=== PATIENT | male | born 1945 | race Caucasian/White ===

== ENCOUNTER 2016-08-04 13:39 | Emergency (ER) | payer OTHER ==
[~2016-08-04] VITALS: Ht 180.3 cm; Wt 81.1 kg
[~2016-08-04 13:39] MED LIST: ACCL20 PO; ADVIN25050 INH; ALL300 PO; ATOR-24 PO; CZR50 PO; ESCI1TAB10 PO; PANT40TA PO; SNT/10 PO; TRAZ50TA35 PO
[2016-08-04 13:42] VITALS: TEMP 36.8; Ht 180.3 cm; Wt 81.1 kg
--- NOTE | 2016-08-04 14:11 | EMERGENCY ROOM VISIT NOTE ---
History Report prepared by Toña: Valdo Blackwell Under the Supervision of: Dr. Jareth Frankel M.D. First contact with patient: 13:48 Chief Complaint: COUGH Stated Complaint: COLD, COUGH, CHEST CONGESTION Nursing Triage Summary: pt c/o cold sx started last week. has been using robitusin. coughing yellow/green mucus. has nasal and chest congestion. pt reports has hx of bronchitis and pneumonia History of Present Illness The patient is a 70 year old male who presents to the Emergency Room with complaints of a persistent illness that started 5 days ago. Per the patient's , the patient has been congested and coughing. His cough is productive with yellow/green mucous. The patient has a history of bronchitis and pneumonia, and his states that the patient is easily subjected to them. The patient denies any fevers. He has not had any recent travels. Source of History: patient, spouse/significant other Onset: 5 days ago Position: other (global - illness) Timing: other (persistent) Associated Symptoms: + cough, No fevers Note: Associated symptoms: Congestion. Review of Systems See HPI for pertinent positives & negatives. A total of 10 systems reviewed and were otherwise negative. Past Medical & Surgical Medical Problems: (1) Asthma (2) Bronchitis (3) Bronchitis (4) HTN (hypertension) (5) PNA (pneumonia) (6) PNA (pneumonia) Family History No pertinent family history Social History Smoking Status: Never Smoker Smokeless Tobacco Use: No Alcohol Use: occasionally Marital Status: Housing Status: lives with significant other Occupation Status: retired Current/Historical Medications Scheduled Allopurinol (Zyloprim *), 300 MG PO DAILY Atorvastatin (Lipitor), 40 MG PO DAILY Azithromycin (Zithromax Z-Marshall), 1 PKT PO UD Escitalopram Oxalate (Lexapro), 20 MG PO DAILY Fluticasone Prop/Salmeterol (Advair Diskus 250/50 Mcg *), 1 PUFF INH BID Losartan Potassium (Cozaar *), 100 MG PO DAILY Pantoprazole (Protonix), 40 MG PO DAILY Trazodone Hcl (Trazodone), 50 MG PO HS Zafirlukast (Accolate *), 20 MG PO DAILY Zaleplon (Sonata), 5 MG PO HS Allergies Uncoded Allergies: ENVIRONMENTAL (Allergy, Unknown, 08/22/02) Physical Exam Vital Signs Date Time Temp Pulse Resp B/P Pulse Ox O2 Delivery O2 Flow Rate FiO2 08/04/16 15:06 89 18 145/91 96 Room Air 08/04/16 13:42 36.8 68 18 145/81 97 Room Air 08/04/16 13:42 97 Room Air Physical Exam CONSTITUTIONAL: Occasional coughing. Nontoxic. HEENT: No icterus, moist mucous membranes NECK: No meningismus, trachea is midline. CARDIOVASCULAR: Regular rate, normal perfusion RESPIRATORY: Lungs clear without rhonchi. GASTROINTESTINAL: Non-tender GENITOURINARY: No flank tenderness MUSCULOSKELETAL: Full range of motion NEUROLOGIC: No acute gross focal deficits. PSYCHIATRIC: Normal affect SKIN: Normal for ethnicity. Medical Decision & Procedures ER Provider Diagnostic Interpretation: X-ray results as stated below per interpretation by me and the radiologist. TWO VIEW CHEST CLINICAL HISTORY: Dyspnea. FINDINGS: PA and lateral chest radiographs are compared to study dated 10/12/2005 . Correlation is made with chest CT dated 01/31/2006. The patient is status post midline sternotomy and mitral valve surgery. The heart is enlarged and there is atherosclerotic calcification of the thoracic aorta. The pulmonary vasculature is noncongested. Chronic interstitial thickening is similar to previous. There is mild bibasilar atelectasis. No airspace consolidation is identified typical for pneumonia. There is no pleural effusion or pneumothorax. The skeletal structures are osteopenic. The bony thorax appears intact. IMPRESSION: Cardiomegaly with no active disease in the chest. Electronically signed by: Mark Cain M.D. 08/04/2016 2:37 PM Dictated Date/Time: 08/04/2016 2:33 PM Laboratory Results 08/04/16 14:04 Red Blood Count 4.78, Mean Corpuscular Volume 91.0, Mean Corpuscular Hemoglobin 30.1, Mean Corpuscular Hemoglobin Concent 33.1, Mean Platelet Volume 11.7, Neutrophils (%) (Auto) 59.9, Lymphocytes (%) (Auto) 21.5, Monocytes (%) (Auto) 13.1, Eosinophils (%) (Auto) 4.9, Basophils (%) (Auto) 0.6, Neutrophils # (Auto ) 3.07, Lymphocytes # (Auto) 1.10, Monocytes # (Auto) 0.67, Eosinophils # (Auto ) 0.25, Basophils # (Auto) 0.03 08/04/16 14:04 Test 08/04/16 14:00 08/04/16 14:04 Influenza Type A Antigen Neg for Influ A (NEG) Influenza Type B Antigen Neg for Influ B (NEG) White Blood Count 5.12 K/uL (4.8-10.8) Red Blood Count 4.78 M/uL (4.7-6.1) Hemoglobin 14.4 g/dL (14.0-18.0) Hematocrit 43.5 % (42-52) Mean Corpuscular Volume 91.0 fL (80-100) Mean Corpuscular Hemoglobin 30.1 pg (25-34) Mean Corpuscular Hemoglobin Concent 33.1 g/dl (32-36) Platelet Count 174 K/uL (130-400) Mean Platelet Volume 11.7 fL (7.4-10.4) Neutrophils (%) (Auto) 59.9 % Lymphocytes (%) (Auto) 21.5 % Monocytes (%) (Auto) 13.1 % Eosinophils (%) (Auto) 4.9 % Basophils (%) (Auto) 0.6 % Neutrophils # (Auto) 3.07 K/uL (1.4-6.5) Lymphocytes # (Auto) 1.10 K/uL (1.2-3.4) Monocytes # (Auto) 0.67 K/uL (0.11-0.59) Eosinophils # (Auto) 0.25 K/uL (0-0.5) Basophils # (Auto) 0.03 K/uL (0-0.2) RDW Standard Deviation 44.4 fL (36.4-46.3) RDW Coefficient of Variation 13.2 % (11.5-14.5) Immature Granulocyte % (Auto) 0.0 % Immature Granulocyte # (Auto) 0.00 K/uL (0.00-0.02) Anion Gap 8.0 mmol/L (3-11) Est Creatinine Clear Calc Drug Dose 66.5 ml/min Estimated GFR () 78.4 Estimated GFR (Non- 67.7 BUN/Creatinine Ratio 16.0 (10-20) Calcium Level 10.1 mg/dl (8.5-10.1) Labs reviewed by ED physician. ED Course 1349: Past medical records reviewed. The patient was evaluated in room C8. A complete history and physical examination was performed. 1459: I reevaluated the patient and he is resting comfortably. The patient verbally expressed understanding and agreement of the treatment plan. The patient will be discharged. Medical Decision Differential diagnoses include: bronchitis, pneumonia. 70-year-old presents to the emergency department for evaluation of cough and congestion for 5 days and concern over pneumonia prior to going on vacation. Lab work, chest x-ray within normal limits. Patient advised diagnosis likely acute bronchitis and given a [id number] prescription for Z-Marshall. Impression Primary Impression: Acute bronchitis Scribe Attestation The scribe's documentation has been prepared under my direction and personally reviewed by me in its entirety. I confirm that the note above accurately reflects all work, treatment, procedures, and medical decision making performed by me. Departure Information Dispostion Home / Self-Care Prescriptions Azithromycin (ZITHROMAX Z-MARSHALL) 250 Mg Tab 1 PKT PO UD, #1 PKT Prov: Jareth Frankel MD 08/04/16 Referrals Pro,Ge Garcia M.D. (PCP) Forms HOME CARE DOCUMENTATION FORM, IMPORTANT VISIT INFORMATION Patient Instructions ED Bronchitis Viral, My [facility]
[2016-08-04 14:17] LABS: BASO % 0.6 %; BASO ABS # 0.03 K/uL (0-0.2); COMPLETE YES; EOS % 4.9 %; HEMATOCRIT 43.5 % (42-52); LYMPH % 21.5 %; MEAN CORPUSCULAR HEMOGLOBIN 30.1 pg (25-34); MEAN CORPUSCULAR HGB CONC 33.1 g/dl (32-36); MEAN PLATELET VOLUME 11.7 fL (7.4-10.4); MONO % 13.1 %; NEUT % 59.9 %; PLATELET COUNT 174 K/uL (130-400); RED BLOOD COUNT 4.78 M/uL (4.7-6.1); WHITE BLOOD COUNT 5.12 K/uL (4.8-10.8)
[2016-08-04 14:34] LABS: CALCIUM 10.1 mg/dl (8.5-10.1); CREATININE 1.1 mg/dl (0.60-1.40); POTASSIUM 3.9 mmol/L (3.5-5.1)
--- NOTE | 2016-08-04 14:38 | DIAGNOSTIC IMAGING REPORT ---
TWO VIEW CHEST CLINICAL HISTORY: Dyspnea. FINDINGS: PA and lateral chest radiographs are compared to study dated 10/12/2005 . Correlation is made with chest CT dated 01/31/2006. The patient is status post midline sternotomy and mitral valve surgery. The heart is enlarged and there is atherosclerotic calcification of the thoracic aorta. The pulmonary vasculature is noncongested. Chronic interstitial thickening is similar to previous. There is mild bibasilar atelectasis. No airspace consolidation is identified typical for pneumonia. There is no pleural effusion or pneumothorax. The skeletal structures are osteopenic. The bony thorax appears intact. IMPRESSION: Cardiomegaly with no active disease in the chest. Electronically signed by: Mark Cain M.D. 08/04/2016 2:37 PM Dictated Date/Time: 08/04/2016 2:33 PM
[2016-08-04] MEDS ORDERED: AZITTAB PO (14:57)
[2016-08-04 15:06] VITALS: BP 145/91; PULSE 89; O2SAT 96
== END 2016-08-04 15:08 | disposition home or self-care (01) ==
LOC: C.EDB 13:41 → C.EDC 15:08
DX: J20.9 Acute bronchitis, unspecified (principal); Z87.01 Personal history of pneumonia (recurrent); J45.909 Unspecified asthma, uncomplicated; I10 Essential (primary) hypertension; Z79.899 Other long term (current) drug therapy

== ENCOUNTER 2016-12-21 14:56 | Emergency (ER) | payer OTHER ==
[~2016-12-21] VITALS: Ht 180.3 cm; Wt 81.2 kg
[2016-12-21 15:04] VITALS: TEMP 36.6; Ht 180.3 cm; Wt 81.2 kg
[2016-12-21] MEDS ORDERED: SODIUM CHLORIDE 0.9% 250ML 250 ML IV STA (15:24)
[2016-12-21] MEDS ORDERED: SODIUM CHLORIDE 0.9% 1000ML 1,000 ML IV STA (15:24)
[2016-12-21 15:52] LABS: BASO % 0.9 %; BASO ABS # 0.06 K/uL (0-0.2); COMPLETE YES; EOS % 1.2 %; HEMATOCRIT 47.7 % (42-52); IG% 0.1 %; LYMPH % 25.3 %; LYMPH ABS # 1.69 K/uL (1.2-3.4); MEAN CORPUSCULAR HEMOGLOBIN 29.4 pg (25-34); MEAN CORPUSCULAR HGB CONC 32.7 g/dl (32-36); MEAN PLATELET VOLUME 11.5 fL (7.4-10.4); MONO % 10.9 %; NEUT % 61.6 %; PLATELET COUNT 164 K/uL (130-400); WHITE BLOOD COUNT 6.67 K/uL (4.8-10.8)
[2016-12-21] MEDS ORDERED: LOSA1TAB38 PO (15:53)
[2016-12-21] MEDS ORDERED: THIA100T11 PO (15:56)
[2016-12-21] MEDS ORDERED: CYAN250T PO (15:56)
[2016-12-21] MEDS ORDERED: ASPI81TA28 PO (15:56)
--- NOTE | 2016-12-21 15:57 | DIAGNOSTIC IMAGING REPORT ---
HEAD CT NONCONTRAST CT DOSE: 537.48 mGy.cm HISTORY: dizziness TECHNIQUE: Multiaxial CT images of the head were performed without the use of intravenous contrast. Comparison: None. Findings: The paranasal sinuses and mastoid air cells are clear. The calvarium and skull base are intact. The ventricles and sulci are within normal limits. There is no mass, hematoma, midline shift, or acute infarct. Mild chronic small vessel change. Impression: No acute intracranial abnormality. Age-related chronic small vessel change Electronically signed by: Carlos Turner M.D. 12/21/2016 3:56 PM Dictated Date/Time: 12/21/2016 3:55 PM
[2016-12-21] MEDS ORDERED: ADVIN25/60 INH (16:03)
[2016-12-21] MEDS ORDERED: ALL300 PO (16:03)
[2016-12-21] MEDS ORDERED: PRLSR20 PO (16:05)
[2016-12-21] MEDS ORDERED: ADVIN50/60 INH (16:05)
[2016-12-21] MEDS ORDERED: MEMA1CAP PO (16:05)
[2016-12-21] MEDS ORDERED: MIRT30TA PO (16:05)
[2016-12-21 16:11] LABS: BUN/CREATININE RATIO 10.7 (10-20); CREATININE 1.2 mg/dl (0.60-1.40); MAGNESIUM 2.6 mg/dl (1.8-2.4); POTASSIUM 4.3 mmol/L (3.5-5.1)
[2016-12-21 16:23] LABS: THYROID STIMULATING HORMONE 1.04 uIu/ml (0.300-4.500)
[2016-12-21 16:29] LABS: URINE APPEARANCE CLEAR (CLEAR); URINE BILIRUBIN NEG (NEG); URINE COLOR YELLOW; URINE NITRITE NEG (NEG); URINE SPECIFIC GRAVITY 1.018 (1.000-1.030); UROBILINOGEN NEG (NEG); ZZUR CULT IF INDIC CLEAN CATCH NO
[2016-12-21 16:44] LABS: MANUAL MICROSCOPIC REQUIRED? NO; REVIEW REQ? NO
--- NOTE | 2016-12-21 16:47 | EMERGENCY ROOM VISIT NOTE ---
History Report prepared by Toña: Pk Thibodeaux Under the Supervision of: Dr. Lalitha Calzada M.D. First contact with patient: 15:23 Chief Complaint: DEHYDRATION Stated Complaint: DEHYDRATION History of Present Illness The patient is a 71 year old male who presents to the Emergency Room with complaints of intermittent dehydration symptoms beginning a few days ago. The patient states that he was outside playing golf and believes that this was the cause. He reports that this has happened to him before, and he feels similar symptoms. The patient notes that he has a decreased appetite and has been trying to maintain his fluids. He reports that he does still consume two alcoholic drinks a night. The patient complains of headaches and dizziness. He denies nausea vomiting, diarrhea, and taking Lasix. The patient reports that he takes ten prescribed medications and four over the counter medications. He notes that he takes Mirtazapine for anxiety and to sleep. The patient reports that he has not had blood work for a few months. He states that his PCP is Dr. Curry. Source of History: patient Onset: few days ago Position: other (global) Quality: other (dehydration) Timing: intermittent Associated Symptoms: + headache, No nausea, No vomiting, No diarrhea Note: Associated symptoms: dizziness. Review of Systems See HPI for pertinent positives & negatives. A total of 10 systems reviewed and were otherwise negative. Past Medical & Surgical Medical Problems: (1) Alzheimers disease (2) Asthma (3) Bronchitis (4) Bronchitis (5) HTN (hypertension) (6) Hypercholesteremia (7) PNA (pneumonia) (8) PNA (pneumonia) Surgical Problems: (1) Mitral valve replaced Family History No pertinent family history Social History Smoking Status: Former Smoker Alcohol Use: occasionally (2 per day) Marital Status: Housing Status: lives with significant other Occupation Status: retired Current/Historical Medications Scheduled Allopurinol (Allopurinol), 300 MG PO DAILY Aspirin (Aspirin Ec), 81 MG PO DAILY Atorvastatin (Lipitor), 40 MG PO DAILY Chlorthalidone (Hygroton), 0.5 TAB PO DAILY Cyanocobalamin (Vitamin B-12), 250 MCG PO DAILY Fluticasone Prop/Salmeterol (Advair Diskus 500/50 60 Dose), 1 PUFF INH BID Losartan Potassium (Cozaar), 100 MG PO DAILY Memantine HCl-Donepezil HCl (Namzaric 21-10 mg), 1 CAP PO DAILY Mirtazapine (Remeron), 30 MG PO HS Omeprazole (Prilosec), 20 MG PO DAILY Thiamine Hcl (Vitamin B-1), 100 MG PO DAILY Allergies Uncoded Allergies: ENVIRONMENTAL (Allergy, Unknown, 08/22/02) Physical Exam Vital Signs Date Time Temp Pulse Resp B/P (MAP) Pulse Ox O2 Delivery O2 Flow Rate FiO2 12/21/16 17:41 62 18 160/94 94 Room Air 12/21/16 16:29 68 12/21/16 16:08 97 Room Air 12/21/16 16:02 67 144/84 77 148/87 68 172/89 12/21/16 15:04 36.6 72 20 140/84 92 Room Air Physical Exam Vital signs reviewed. General: Well-appearing, in no significant distress. HEENT: No scleral icterus, PERRLA, neck supple. Atraumatic. Cardiovascular: Regular rate and rhythm, no extra sounds. Pulmonary: Clear to auscultation bilaterally, normal work of breathing. Abdomen: Soft, nontender, nondistended, positive bowel sounds. Musculoskeletal: Atraumatic, no peripheral edema. Neurologic: Patient awake alert and oriented x 3, full strength in all 4 extremities. Cranial nerves 2 through 12 grossly intact. Skin: Warm, dry, no rash Medical Decision & Procedures ER Provider Diagnostic Interpretation: CT results as stated below per my review and radiologist interpretation: HEAD CT NONCONTRAST CT DOSE: 537.48 mGy.cm HISTORY: dizziness TECHNIQUE: Multiaxial CT images of the head were performed without the use of intravenous contrast. Comparison: None. Findings: The paranasal sinuses and mastoid air cells are clear. The calvarium and skull base are intact. The ventricles and sulci are within normal limits. There is no mass, hematoma, midline shift, or acute infarct. Mild chronic small vessel change. Impression: No acute intracranial abnormality. Age-related chronic small vessel change Electronically signed by: Carlos Turner M.D. 12/21/2016 3:56 PM Dictated Date/Time: 12/21/2016 3:55 PM Laboratory Results 12/21/16 15:39 Red Blood Count 5.30, Mean Corpuscular Volume 90.0, Mean Corpuscular Hemoglobin 29.4, Mean Corpuscular Hemoglobin Concent 32.7, Mean Platelet Volume 11.5, Neutrophils (%) (Auto) 61.6, Lymphocytes (%) (Auto) 25.3, Monocytes (%) (Auto) 10.9, Eosinophils (%) (Auto) 1.2, Basophils (%) (Auto) 0.9, Neutrophils # (Auto ) 4.10, Lymphocytes # (Auto) 1.69, Monocytes # (Auto) 0.73, Eosinophils # (Auto ) 0.08, Basophils # (Auto) 0.06 12/21/16 15:39 Test 12/21/16 15:39 12/21/16 16:10 12/21/16 16:20 White Blood Count 6.67 K/uL (4.8-10.8) Red Blood Count 5.30 M/uL (4.7-6.1) Hemoglobin 15.6 g/dL (14.0-18.0) Hematocrit 47.7 % (42-52) Mean Corpuscular Volume 90.0 fL (80-100) Mean Corpuscular Hemoglobin 29.4 pg (25-34) Mean Corpuscular Hemoglobin Concent 32.7 g/dl (32-36) Platelet Count 164 K/uL (130-400) Mean Platelet Volume 11.5 fL (7.4-10.4) Neutrophils (%) (Auto) 61.6 % Lymphocytes (%) (Auto) 25.3 % Monocytes (%) (Auto) 10.9 % Eosinophils (%) (Auto) 1.2 % Basophils (%) (Auto) 0.9 % Neutrophils # (Auto) 4.10 K/uL (1.4-6.5) Lymphocytes # (Auto) 1.69 K/uL (1.2-3.4) Monocytes # (Auto) 0.73 K/uL (0.11-0.59) Eosinophils # (Auto) 0.08 K/uL (0-0.5) Basophils # (Auto) 0.06 K/uL (0-0.2) RDW Standard Deviation 44.9 fL (36.4-46.3) RDW Coefficient of Variation 13.7 % (11.5-14.5) Immature Granulocyte % (Auto) 0.1 % Immature Granulocyte # (Auto) 0.01 K/uL (0.00-0.02) Anion Gap 8.0 mmol/L (3-11) Est Creatinine Clear Calc Drug Dose 60.1 ml/min Estimated GFR () 70.1 Estimated GFR (Non- 60.5 BUN/Creatinine Ratio 10.7 (10-20) Calcium Level 10.0 mg/dl (8.5-10.1) Magnesium Level 2.6 mg/dl (1.8-2.4) Total Bilirubin 0.6 mg/dl (0.2-1) Direct Bilirubin 0.2 mg/dl (0-0.2) Aspartate Amino Transf (AST/SGOT) 14 U/L (15-37) Alanine Aminotransferase (ALT/SGPT) 24 U/L (12-78) Alkaline Phosphatase 51 U/L (45-117) Total Protein 7.2 gm/dl (6.4-8.2) Albumin 4.2 gm/dl (3.4-5.0) Thyroid Stimulating Hormone (TSH) 1.040 uIu/ml (0.300-4.500) Urine Color YELLOW Urine Appearance CLEAR (CLEAR) Urine pH 5.0 (4.5-7.5) Urine Specific [place] 1.018 (1.000-1.030) Urine Protein NEG (NEG) Urine Glucose (UA) NEG (NEG) Urine Ketones NEG (NEG) Urine Occult Blood NEG (NEG) Urine Nitrite NEG (NEG) Urine Bilirubin NEG (NEG) Urine Urobilinogen NEG (NEG) Urine Leukocyte Esterase NEG (NEG) Ethyl Alcohol mg/dL < 3.0 mg/dl (0-3) Laboratory results per my review. Medications Administered Medications (Trade) Dose Ordered Sig/Robbi Route Start Time Stop Time Status Last Admin Dose Admin Sodium Chloride 250 ml @ 999 mls/hr Q16M STAT IV 12/21/16 15:24 12/21/16 15:39 DC 12/21/16 15:24 999 MLS/HR Sodium Chloride 1,000 ml @ 125 mls/hr Q8H STAT IV 12/21/16 15:24 12/21/16 18:57 DC 12/21/16 15:24 125 MLS/HR ECG Indication: weakness Rate (beats per minute): 66 Rhythm: normal sinus Findings: 1st degree AV block, no acute ischemic change, no ectopy ED Course 1524: Ordered Sodium Chloride 1000 ml @ 125 mls/hr IV, Sodium Chloride 250 ml @ 999 mls/hr IV 1529: Past medical records reviewed. The patient was evaluated in room C03. A complete history and physical examination was performed. 1749: Upon reevaluation, the patient appeared to have improvement of his symptoms. I discussed findings with him. He verbalized agreement of the treatment plan. The patient was discharged home. Medical Decision Differential diagnosis: Etiologies such as benign positional vertigo, dehydration, hypovolemia, anemia, tumor, infection, hypoglycemia, electrolyte abnormalities, cardiac sources, intracerebral event, toxicologic, neurologic, as well as others were entertained. Medication Reconciliation: I attest that I have personally reviewed the patient' s current medication list. Blood Pressure Screening: Patient was found to have an elevated blood pressure and was referred to their primary doctor for recheck and further treatment. This pt was evaluated and appeared to be in no distress. IV access was obtained and lab work was drawn. Pt was hydrated with NSS. He was noted to be hypertensive. EKG reveals a 1st degree AVB, no ischemia. Lab work reveals no significant abnl. CT head reveals no acute intracranial abnl. Pt was given a Rx for chlorthalidone 12.5 mg daily. He was advised to f/u with PCP this week for BP recheck and further medication management. He will return to the ED for worsening of symptoms or any medical concerns. Impression Primary Impression: HTN (hypertension) Additional Impression: Dizziness Scribe Attestation The scribe's documentation has been prepared under my direction and personally reviewed by me in its entirety. I confirm that the note above accurately reflects all work, treatment, procedures, and medical decision making performed by me. Departure Information Dispostion Home / Self-Care Prescriptions Chlorthalidone (HYGROTON) 25 Mg Tab 0.5 TAB PO DAILY for 30 Days, #15 TAB 0 Refills Prov: Lalitha Calzada M.D. 12/21/16 Referrals Ge Curry M.D. (PCP) Forms HOME CARE DOCUMENTATION FORM, IMPORTANT VISIT INFORMATION, WORK / SCHOOL INSTRUCTIONS Patient Instructions My [facility] Additional Instructions Diagnosis: Hypertension, dizziness Chlorthalidone 12.5 mg daily. Continue your Cozaar 100 mg daily. Maintain a low salt diet, less than 2 g daily. Contact your primary care physician for blood pressure recheck and medication review and 1 week. Return to the ER for worsening of symptoms or any medical concerns. Problem Qualifiers
[2016-12-21 17:41] VITALS: BP 160/94; PULSE 62; O2SAT 94
[2016-12-21] MEDS ORDERED: HYG/25 PO (17:48)
[2016-12-21] MEDS ORDERED: CHLORTHALIDONE 25 MG TAB PO STA (17:57)
== END 2016-12-21 18:15 | disposition home or self-care (01) ==
LOC: C.EDB 14:57 → C.EDC 18:15
DX: I10 Essential (primary) hypertension (principal); R42 Dizziness and giddiness; G30.9 Alzheimer's disease, unspecified; F02.80 Dementia in other diseases classified elsewhere, unspecified severity, without behavioral disturbance, psychotic disturbance, mood disturbance, and anxiety; J45.909 Unspecified asthma, uncomplicated; E78.00 Pure hypercholesterolemia, unspecified; Z87.01 Personal history of pneumonia (recurrent); Z95.2 Presence of prosthetic heart valve; Z87.891 Personal history of nicotine dependence; Z79.82 Long term (current) use of aspirin; Z79.899 Other long term (current) drug therapy

== ENCOUNTER 2017-01-11 13:20 | Emergency (ER) | payer OTHER ==
[~2017-01-11] VITALS: Ht 180.3 cm; Wt 77.3 kg
[~2017-01-11 13:20] MED LIST changes: -ACCL20 PO; -ADVIN25050 INH; +ADVIN50/60 INH; +ASPI81TA28 PO; +CYAN250T PO; -CZR50 PO; -ESCI1TAB10 PO; +HYG/25 PO; +LOSA1TAB38 PO; +MEMA1CAP PO; +MIRT30TA PO; -PANT40TA PO; +PRLSR20 PO; -SNT/10 PO; +THIA100T11 PO; -TRAZ50TA35 PO
[2017-01-11 13:22] VITALS: TEMP 37.2; Ht 180.3 cm; Wt 77.3 kg
[2017-01-11] MEDS ORDERED: MEMA1CAP (14:36)
[2017-01-11] MEDS ORDERED: TAMS0.4C38 PO (14:36)
[2017-01-11] MEDS ORDERED: AMOX500C3 PO (14:36)
--- NOTE | 2017-01-11 15:02 | EMERGENCY ROOM VISIT NOTE ---
History First contact with patient: 14:31 Chief Complaint: CONSTIPATION Stated Complaint: CHRONIC CONSTIPATION History of Present Illness The patient is a 71 year old male who presents to the Emergency Room with complaints of chronic constipation over the last month. The patient used to take Metamucil daily. This stopped working for him approximately 1 month ago. He saw his primary care physician's office. They recommended switching to Citrucel and taking a stool softener twice daily. He still feels like when he moves his bowels he is unable to fully evacuate. He denies any dark stools or blood in his stool. He does have a bowel movement almost daily. He denies any abdominal pain or nausea. No fever or chills. He was recently started on chlorthalidone for blood pressure. Otherwise, no changes in medications. The patient has had a prior colonoscopy that was reportedly normal. This was several years ago. Review of Systems 10 system review performed and negative unless noted in HPI or below Past Medical/Surgical History Medical Problems: (1) Alzheimers disease (2) Asthma (3) Bronchitis (4) Bronchitis (5) HTN (hypertension) (6) Hypercholesteremia (7) PNA (pneumonia) (8) PNA (pneumonia) Surgical Problems: (1) Mitral valve replaced Family History No pertinent family history Social History Smoking Status: Never Smoker Alcohol Use: occasionally Marital Status: Housing Status: lives with significant other Occupation Status: retired Current/Historical Medications Scheduled Allopurinol (Allopurinol), 300 MG PO DAILY Amoxicillin (Amoxil), 1 CAP PO BID Aspirin (Aspirin Ec), 81 MG PO DAILY Atorvastatin (Lipitor), 40 MG PO DAILY Bisacodyl (Dulcolax), 1 SUPP NV DAILY Chlorthalidone (Hygroton), 0.5 TAB PO DAILY Cyanocobalamin (Vitamin B-12), 250 MCG PO DAILY Fluticasone Prop/Salmeterol (Advair Diskus 500/50 60 Dose), 1 PUFF INH BID Losartan Potassium (Cozaar), 100 MG PO DAILY Memantine HCl-Donepezil HCl (Namzaric 21-10 mg), 1 CAP PO DAILY Mirtazapine (Remeron), 30 MG PO HS Omeprazole (Prilosec), 20 MG PO DAILY Tamsulosin Hcl (Flomax), 1 CAP PO DAILY Thiamine Hcl (Vitamin B-1), 100 MG PO DAILY Miscellaneous Medications Memantine HCl-Donepezil HCl (Namzaric 21-10 mg) Allergies Uncoded Allergies: ENVIRONMENTAL (Allergy, Unknown, 08/22/02) Physical Exam Vital Signs Date Time Temp Pulse Resp B/P (MAP) Pulse Ox O2 Delivery O2 Flow Rate FiO2 01/11/17 17:44 128/84 01/11/17 15:50 73 16 122/75 100 01/11/17 13:22 37.2 82 20 121/66 96 Room Air Physical Exam VITALS: Vitals are noted on the nurse's note and reviewed by myself. Vital signs stable. GENERAL: 71-year-old male, in no acute distress, nondiaphoretic, well-developed well-nourished. SKIN: The skin was without rashes, erythema, edema, or bruising. HEAD: Normocephalic atraumatic. MOUTH: Mucous membranes moist. NECK: No JVD. HEART: Regular rate and rhythm without murmurs gallops or rubs. LUNGS: Clear to auscultation bilaterally without wheezes, rales or rhonchi. No accessory muscle use. ABDOMEN: Positive bowel sounds x 4.Soft, nontender, without organomegaly. No guarding or rebound tenderness. RECTAL: No external hemorrhoids noted. Good sphincter tone. No fissures or internal hemorrhoids palpated. There is a moderate amount of stool in the rectum. MUSCULOSKELETAL: No muscle atrophy, erythema, or edema noted. Strength 5/5 throughout. NEURO: Patient was alert and oriented to person only. Severe memory impairment noted. No focal motor deficit noted. Medical Decision & Procedures ER Provider Diagnostic Interpretation: Patient Name: MANUEL BLANCO Unit Number: [id number] Dictated: 01/11/171544 Transcribed: 01/11/171544 ARG Printed Date/Time: [~ rep prt dt]/[~ rep prt tm] [~ rep ct labl] - [~ rep ct ivnm] [facility] [place] [address] Dictated: 01/11/171544 Transcribed: 01/11/171544 ARG Printed Date/Time: [~ rep prt dt]/[~ rep prt tm] [~ rep ct labl] - [~ rep ct ivnm] Patient: MANUEL BLANCO Address1: [address] Rec: [id number] Address2: Acct ID: [id number] [facility] Zip: [place] [address] Date: 1945 Sex: M Room/Bed: Ref Phy: Ge Curry M.D. SC: ARAMIS Att Phy: Report #: [id number] Kary Phy: Ge Curry M.D. Test: ABCX Admit Phy: [employer] Manager: JANEY Interpreting Phy: Rito Perez M.D. Diagnosis: CHRONIC CONSTIPATION Ordering Phy: Suzan Dominguez PA-C Service Date: 01/11/17 Admit Date: 01/11/17 MNE: [id number] CONF: DICTATED BY: Rito Perze M.D.]] CC: Santino Sandoval MD Pro, Jeffrey W., M.D. Urban, Angela P., PA-C Endcc: [~ rep ct add3]] ABDOMEN 2VIEW W/PA CHEST RTN CLINICAL HISTORY: chronic constipation r/o impaction COMPARISON STUDY: Chest x-ray dated 08/04/2016 FINDINGS: The erect chest reveals postsurgical changes of midline sternotomy and valvular replacement. There is no free intraperitoneal air. There is no focal pulmonary consolidation. Erect and supine views the abdomen reveal no abnormally dilated loops of large or small bowel. There are no transition zone to indicate bowel obstruction. There is no conventional radiographic evidence of fecal impaction. IMPRESSION: No evidence of bowel obstruction. No evidence of free air. No evidence of fecal impaction. Electronically signed by: Rito Perez M.D. 01/11/2017 3:46 PM Dictated Date/Time: 01/11/2017 3:45 PM The status of this report is Signed. Draft = Not yet reviewed or approved by Radiologist. Signed = Reviewed and approved by Radiologist. <AttendingPhy></AttendingPhy> <FamilyPhy>Ge Curry M.D.</FamilyPhy> < PrimaryPhy>Ge Curry M.D.</PrimaryPhy> <UnitNumber>[id number]</UnitNumber > <VisitNumber>[id number]</VisitNumber> <PatientName>MANUEL BLANCO</ PatientName> <DateOfBirth>1945</DateOfBirth> <Location>[facility]</Location> < ServiceDate>01/11/17</ServiceDate> <MNE>ESINDI</MNE> <OrderingPhy>AlbertoSuzan Lelia WATSON</OrderingPhy> <OrderingPhyMNE>f rep ord dr red</OrderingPhyMNE> < DictatingPhyMNE>f rep dict dr red</DictatingPhyMNE> <CCListMNE>f rep ct mne</ CCListMNE> <AdmittingPhyMNE>f pt admit dr red</AdmittingPhyMNE> <AttendingPhyMNE >f pt attend dr red</AttendingPhyMNE> <ConsultingPhyMNE>f pt consult dr red</ConsultingPhyMNE> <FamilyPhyMNE>f pt fam dr red</FamilyPhyMNE> <OtherPhyMNE>f pt other dr red</OtherPhyMNE> < PrimaryPhyMNE>f pt prim care dr red</PrimaryPhyMNE> <ReferringPhyMNE>f pt referring dr red</ReferringPhyMNE> Laboratory Results 01/11/17 15:03 Red Blood Count 5.26, Mean Corpuscular Volume 88.8, Mean Corpuscular Hemoglobin 30.6, Mean Corpuscular Hemoglobin Concent 34.5, Mean Platelet Volume 12.2, Neutrophils (%) (Auto) 73.8, Lymphocytes (%) (Auto) 18.0, Monocytes (%) (Auto) 6.9, Eosinophils (%) (Auto) 0.5, Basophils (%) (Auto) 0.5, Neutrophils # (Auto) 4.92, Lymphocytes # (Auto) 1.20, Monocytes # (Auto) 0.46, Eosinophils # (Auto) 0.03, Basophils # (Auto) 0.03 01/11/17 15:03 Test 01/11/17 15:03 White Blood Count 6.66 K/uL (4.8-10.8) Red Blood Count 5.26 M/uL (4.7-6.1) Hemoglobin 16.1 g/dL (14.0-18.0) Hematocrit 46.7 % (42-52) Mean Corpuscular Volume 88.8 fL (80-100) Mean Corpuscular Hemoglobin 30.6 pg (25-34) Mean Corpuscular Hemoglobin Concent 34.5 g/dl (32-36) Platelet Count 178 K/uL (130-400) Mean Platelet Volume 12.2 fL (7.4-10.4) Neutrophils (%) (Auto) 73.8 % Lymphocytes (%) (Auto) 18.0 % Monocytes (%) (Auto) 6.9 % Eosinophils (%) (Auto) 0.5 % Basophils (%) (Auto) 0.5 % Neutrophils # (Auto) 4.92 K/uL (1.4-6.5) Lymphocytes # (Auto) 1.20 K/uL (1.2-3.4) Monocytes # (Auto) 0.46 K/uL (0.11-0.59) Eosinophils # (Auto) 0.03 K/uL (0-0.5) Basophils # (Auto) 0.03 K/uL (0-0.2) RDW Standard Deviation 43.0 fL (36.4-46.3) RDW Coefficient of Variation 13.2 % (11.5-14.5) Immature Granulocyte % (Auto) 0.3 % Immature Granulocyte # (Auto) 0.02 K/uL (0.00-0.02) Anion Gap 8.0 mmol/L (3-11) Est Creatinine Clear Calc Drug Dose 40.1 ml/min Estimated GFR () 42.9 Estimated GFR (Non- 37.0 BUN/Creatinine Ratio 8.7 (10-20) Calcium Level 10.4 mg/dl (8.5-10.1) Magnesium Level 2.3 mg/dl (1.8-2.4) Total Bilirubin 0.7 mg/dl (0.2-1) Aspartate Amino Transf (AST/SGOT) 16 U/L (15-37) Alanine Aminotransferase (ALT/SGPT) 24 U/L (12-78) Alkaline Phosphatase 52 U/L (45-117) Total Protein 7.1 gm/dl (6.4-8.2) Albumin 4.4 gm/dl (3.4-5.0) Globulin 2.7 gm/dl (2.5-4.0) Albumin/Globulin Ratio 1.6 (0.9-2) Medications Administered Medications (Trade) Dose Ordered Sig/Robbi Route Start Time Stop Time Status Last Admin Dose Admin Sodium Biphosphate/ Sodium Phosphate (Fleet Enema) 132 ml NOW STAT [place] 01/11/17 16:04 01/11/17 16:05 DC 01/11/17 16:12 132 ML Sodium Chloride 1,000 ml @ 999 mls/hr Q1H1M ONCE IV 01/11/17 16:30 01/11/17 17:30 DC 01/11/17 16:31 999 MLS/HR Magnesium Citrate (Citrate Of Magnesia Soln) 50 ml NOW ONCE PO 01/11/17 17:45 01/11/17 17:46 DC 01/11/17 17:42 300 ML ED Course Patient was seen and examined Labs were obtained, and a saline lock was established Vital signs were reviewed X-rays were obtained and reviewed A rectal exam was performed The findings were discussed with the patient and the patient's The patient was given 1 L of normal saline in addition to a Fleet enema. The case was also discussed with my supervising physician, Dr. Sandoval who personally evaluated the patient The patient was given a bottle of mag citrate they were comfortable being discharged home I reviewed discharge instructions the patient. They voiced understanding and had no further questions. Medical Decision Differential diagnosis: Mechanical constipation, colonic mass, dehydration, electrolyte imbalance, fecal impaction This patient is a pleasant 71-year-old male that presents emergency department with a main complaint of constipation. His abdomen was benign on exam. His bowel sounds were present, but hypoactive. Imaging did not reveal any signs of fecal impaction. His exam did have a moderate amount of stool in the rectum, which is what prompted me to give the patient a Fleet enema. I ordered labs to rule out any electrolyte abnormalities. The patient's creatinine is elevated at 2.3 from previous labs of 1.2. This is likely secondary to the addition of chlorthalidone. The patient was instructed to stop this medication. He will repeat a partial renal panel in 2 days. He will also need close follow-up with his primary care physician. Regarding his constipation, He was prescribed Dulcolax suppositories. He was instructed to drink one half of a bottle of magnesium citrate, which was provided for him. He will drink the other half in 6 hours. He was instructed to continue his Citrucel and Colace. He was also given a follow-up appointment with his GI doctor for possible further workup i.e. colonoscopy Impression Primary Impression: Constipation Additional Impression: Acute renal failure Departure Information Prescriptions Bisacodyl (DULCOLAX) 10 Mg Sup 1 SUPP NV DAILY for Constipation, #30 SUP Prov: Suzan Dominguez PA-C 01/11/17 Referrals Pro,Ge Garcia M.D. (PCP) Patient Instructions My [facility] Problem Qualifiers
[2017-01-11 15:16] LABS: BASO % 0.5 %; BASO ABS # 0.03 K/uL (0-0.2); COMPLETE YES; EOS % 0.5 %; HEMATOCRIT 46.7 % (42-52); IG% 0.3 %; MEAN CELL VOLUME 88.8 fL (80-100); MEAN CORPUSCULAR HEMOGLOBIN 30.6 pg (25-34); MEAN CORPUSCULAR HGB CONC 34.5 g/dl (32-36); MEAN PLATELET VOLUME 12.2 fL (7.4-10.4); MONO % 6.9 %; NEUT % 73.8 %; PLATELET COUNT 178 K/uL (130-400); RED BLOOD COUNT 5.26 M/uL (4.7-6.1); WHITE BLOOD COUNT 6.66 K/uL (4.8-10.8)
[2017-01-11 15:41] LABS: BUN/CREATININE RATIO 8.7 (10-20); CALCIUM 10.4 mg/dl (8.5-10.1); CREATININE 1.8 mg/dl (0.60-1.40); MAGNESIUM 2.3 mg/dl (1.8-2.4); POTASSIUM 3.9 mmol/L (3.5-5.1)
[2017-01-11 15:44] LABS: ALB/GLOB RATIO 1.6 (0.9-2)
--- NOTE | 2017-01-11 15:47 | DIAGNOSTIC IMAGING REPORT ---
ABDOMEN 2VIEW W/PA CHEST RTN CLINICAL HISTORY: chronic constipation r/o impaction COMPARISON STUDY: Chest x-ray dated 08/04/2016 FINDINGS: The erect chest reveals postsurgical changes of midline sternotomy and valvular replacement. There is no free intraperitoneal air. There is no focal pulmonary consolidation. Erect and supine views the abdomen reveal no abnormally dilated loops of large or small bowel. There are no transition zone to indicate bowel obstruction. There is no conventional radiographic evidence of fecal impaction. IMPRESSION: No evidence of bowel obstruction. No evidence of free air. No evidence of fecal impaction. Electronically signed by: Rito Perez M.D. 01/11/2017 3:46 PM Dictated Date/Time: 01/11/2017 3:45 PM
[2017-01-11 15:50] VITALS: PULSE 73; O2SAT 100
[2017-01-11] MEDS ORDERED: SOD PHOSPHATE/SOD BIPHOSPHATE ENEMA 132 ML BTL PR STA (16:04)
[2017-01-11] MEDS ORDERED: SODIUM CHLORIDE 0.9% 1000ML 1,000 ML IV ONE (16:30)
--- NOTE | 2017-01-11 16:32 | EMERGENCY ROOM VISIT NOTE ---
ED Visit Note First contact with patient: 14:31 I have seen and examined this patient with Suzan Dominguez and generally agree with the treatment plan as discussed. Problem List Medical Problems: (1) Asthma Status: Chronic (2) Bronchitis Status: Resolved (3) Bronchitis Status: Resolved (4) HTN (hypertension) Status: Chronic (5) PNA (pneumonia) Status: Resolved (6) PNA (pneumonia) Status: Resolved Current/Historical Medications Scheduled Allopurinol (Allopurinol), 300 MG PO DAILY Amoxicillin (Amoxil), 1 CAP PO BID Aspirin (Aspirin Ec), 81 MG PO DAILY Atorvastatin (Lipitor), 40 MG PO DAILY Chlorthalidone (Hygroton), 0.5 TAB PO DAILY Cyanocobalamin (Vitamin B-12), 250 MCG PO DAILY Fluticasone Prop/Salmeterol (Advair Diskus 500/50 60 Dose), 1 PUFF INH BID Losartan Potassium (Cozaar), 100 MG PO DAILY Memantine HCl-Donepezil HCl (Namzaric 21-10 mg), 1 CAP PO DAILY Mirtazapine (Remeron), 30 MG PO HS Omeprazole (Prilosec), 20 MG PO DAILY Tamsulosin Hcl (Flomax), 1 CAP PO DAILY Thiamine Hcl (Vitamin B-1), 100 MG PO DAILY Miscellaneous Medications Memantine HCl-Donepezil HCl (Namzaric 21-10 mg) Allergies Uncoded Allergies: ENVIRONMENTAL (Allergy, Unknown, 08/22/02) Vital Signs Date Time Temp Pulse Resp B/P (MAP) Pulse Ox O2 Delivery O2 Flow Rate FiO2 01/11/17 15:50 73 16 122/75 100 01/11/17 13:22 37.2 82 20 121/66 96 Room Air Laboratory Results 01/11/17 15:03 Red Blood Count 5.26, Mean Corpuscular Volume 88.8, Mean Corpuscular Hemoglobin 30.6, Mean Corpuscular Hemoglobin Concent 34.5, Mean Platelet Volume 12.2, Neutrophils (%) (Auto) 73.8, Lymphocytes (%) (Auto) 18.0, Monocytes (%) (Auto) 6.9, Eosinophils (%) (Auto) 0.5, Basophils (%) (Auto) 0.5, Neutrophils # (Auto) 4.92, Lymphocytes # (Auto) 1.20, Monocytes # (Auto) 0.46, Eosinophils # (Auto) 0.03, Basophils # (Auto) 0.03 01/11/17 15:03 Test 01/11/17 15:03 White Blood Count 6.66 K/uL (4.8-10.8) Red Blood Count 5.26 M/uL (4.7-6.1) Hemoglobin 16.1 g/dL (14.0-18.0) Hematocrit 46.7 % (42-52) Mean Corpuscular Volume 88.8 fL (80-100) Mean Corpuscular Hemoglobin 30.6 pg (25-34) Mean Corpuscular Hemoglobin Concent 34.5 g/dl (32-36) Platelet Count 178 K/uL (130-400) Mean Platelet Volume 12.2 fL (7.4-10.4) Neutrophils (%) (Auto) 73.8 % Lymphocytes (%) (Auto) 18.0 % Monocytes (%) (Auto) 6.9 % Eosinophils (%) (Auto) 0.5 % Basophils (%) (Auto) 0.5 % Neutrophils # (Auto) 4.92 K/uL (1.4-6.5) Lymphocytes # (Auto) 1.20 K/uL (1.2-3.4) Monocytes # (Auto) 0.46 K/uL (0.11-0.59) Eosinophils # (Auto) 0.03 K/uL (0-0.5) Basophils # (Auto) 0.03 K/uL (0-0.2) RDW Standard Deviation 43.0 fL (36.4-46.3) RDW Coefficient of Variation 13.2 % (11.5-14.5) Immature Granulocyte % (Auto) 0.3 % Immature Granulocyte # (Auto) 0.02 K/uL (0.00-0.02) Anion Gap 8.0 mmol/L (3-11) Est Creatinine Clear Calc Drug Dose 40.1 ml/min Estimated GFR () 42.9 Estimated GFR (Non- 37.0 BUN/Creatinine Ratio 8.7 (10-20) Calcium Level 10.4 mg/dl (8.5-10.1) Magnesium Level 2.3 mg/dl (1.8-2.4) Total Bilirubin 0.7 mg/dl (0.2-1) Aspartate Amino Transf (AST/SGOT) 16 U/L (15-37) Alanine Aminotransferase (ALT/SGPT) 24 U/L (12-78) Alkaline Phosphatase 52 U/L (45-117) Total Protein 7.1 gm/dl (6.4-8.2) Albumin 4.4 gm/dl (3.4-5.0) Globulin 2.7 gm/dl (2.5-4.0) Albumin/Globulin Ratio 1.6 (0.9-2) Medications Administered Medications (Trade) Dose Ordered Sig/Robbi Route Start Time Stop Time Status Last Admin Dose Admin Sodium Biphosphate/ Sodium Phosphate (Fleet Enema) 132 ml NOW STAT [place] 01/11/17 16:04 01/11/17 16:05 DC 01/11/17 16:12 132 ML Departure Information Referrals Pro,Ge Garcia M.D. (PCP) Patient Instructions My [facility]
[2017-01-11] MEDS ORDERED: BISA10SU3 PR (17:00)
[2017-01-11 17:44] VITALS: BP 128/84
[2017-01-11] MEDS ORDERED: MAGNESIUM CITRATE 296 ML/BTL PO ONE (17:45)
== END 2017-01-11 17:51 | disposition home or self-care (01) ==
LOC: C.EDB 13:21 → C.EDC 17:51
DX: K59.09 Other constipation (principal); N17.9 Acute kidney failure, unspecified; J45.909 Unspecified asthma, uncomplicated; I10 Essential (primary) hypertension; G30.9 Alzheimer's disease, unspecified; F02.80 Dementia in other diseases classified elsewhere, unspecified severity, without behavioral disturbance, psychotic disturbance, mood disturbance, and anxiety; E78.00 Pure hypercholesterolemia, unspecified; Z87.01 Personal history of pneumonia (recurrent); Z95.2 Presence of prosthetic heart valve; Z98.890 Other specified postprocedural states; Z79.82 Long term (current) use of aspirin; Z79.899 Other long term (current) drug therapy

== ENCOUNTER → 2017-02-10 | Outpatient (CLI) | payer OTHER ==
[~2017-02-10] MED LIST changes: +AMOX500C3 PO; +MEMA1CAP; +TAMS0.4C38 PO
== END | disposition home or self-care (01) ==
LOC: C.LAB1850 08:04
PROVIDERS: ATTEND Internal Medicine Gastroenterology
DX: K59.00 Constipation, unspecified (principal)

== ENCOUNTER → 2017-02-13 | Outpatient (CLI) | payer OTHER ==
--- NOTE | 2017-02-13 09:39 | DIAGNOSTIC IMAGING REPORT ---
CT OF THE PELVIS WITH RECTAL CONTRAST CLINICAL HISTORY: Constipation. Persistent rectal discomfort. COMPARISON STUDY: Abdominal series January 11, 2017. TECHNIQUE: A barium enema tip was placed and contrast was administered through the rectum. Axial unenhanced images through the pelvis were then obtained. Sagittal and coronal reconstructions were viewed. FINDINGS: A small fat-containing umbilical hernia is noted. There is a fat-containing left inguinal hernia. A small right inguinal hernia contains a few small bowel loops with slightly protrude through the defect. No pelvic mass or fluid collection is identified. Prostate gland is moderately enlarged. There is adequate contrast within the rectum and visualized portions of the colon. Sensitivity for detection of rectal mucosal lesions is diminished given CT technique but none are identified. Perirectal/perianal soft tissues are unremarkable. No suspicious osseous lesions are present. Scattered colonic diverticula are noted within visualized portions of the colon without evidence for acute diverticulitis. The appendix is normal. There is no pelvic lymphadenopathy. IMPRESSION: 1. No perirectal/perianal abnormality identified by CT. 2. Decreased sensitivity for detection of rectal mucosal lesions given CT technique but no lesions identified. Scattered colonic diverticula within visualized portions of the colon without evidence for acute diverticulitis. 3. Mild to moderate enlargement of the prostate. Electronically signed by: Ghanshyam Swenson M.D. 02/13/2017 9:37 AM Dictated Date/Time: 02/13/2017 9:28 AM
== END | disposition home or self-care (01) ==
LOC: C.CTS 08:27
PROVIDERS: ATTEND Internal Medicine Gastroenterology
DX: K59.00 Constipation, unspecified (principal); K57.30 Diverticulosis of large intestine without perforation or abscess without bleeding

== ENCOUNTER → 2017-04-07 | Outpatient (CLI) | payer OTHER ==
[2017-04-07 09:55] LABS: ALT/SGPT 20 U/L (12-78); AST/SGOT 11 U/L (15-37); BLOOD UREA NITROGEN 11 mg/dl (7-18); BUN/CREATININE RATIO 9.7 (10-20); CALCIUM 10.4 mg/dl (8.5-10.1); CARBON DIOXIDE 28 mmol/L (21-32); CHLORIDE 110 mmol/L (98-107); GLUCOSE 100 mg/dl (70-99); POTASSIUM 3.7 mmol/L (3.5-5.1); SODIUM 143 mmol/L (136-145)
[2017-04-07 09:59] LABS: CHOLESTEROL 116 mg/dl (0-200); CHOLESTEROL/HDL RATIO 2.2; HDL CHOLESTEROL 53 mg/dl; LDL CHOLESTEROL CALCULATED 42 mg/dl; TRIGLYCERIDES 103 mg/dl (0-150); VERY LOW DENSITY LIPOPROT CALC 21 mg/dl
== END | disposition home or self-care (01) ==
LOC: C.LAB1850 07:16
PROVIDERS: ATTEND Internal Medicine
DX: E78.00 Pure hypercholesterolemia, unspecified (principal); G62.9 Polyneuropathy, unspecified

== ENCOUNTER 2017-05-04 03:35 | Emergency (ER) | payer OTHER ==
[~2017-05-04] VITALS: Ht 180.3 cm; Wt 75.3 kg
[2017-05-04 03:37] VITALS: Ht 180.3 cm; Wt 75.3 kg
[2017-05-04] MEDS ORDERED: LORAZEPAM 2 MG/ML 1 ML VIAL IV STA (04:04)
[2017-05-04 04:11] LABS: URINE APPEARANCE CLEAR (CLEAR); URINE BILIRUBIN NEG (NEG); URINE COLOR YELLOW; URINE NITRITE NEG (NEG); URINE SPECIFIC GRAVITY 1.012 (1.000-1.030); UROBILINOGEN NEG (NEG); ZZURINE CULT IF INDIC CATH NO
[2017-05-04 04:22] LABS: MANUAL MICROSCOPIC REQUIRED? NO; REVIEW REQ? NO
[2017-05-04 04:37] VITALS: TEMP 36.6
[2017-05-04 04:39] LABS: BUN/CREATININE RATIO 11.7 (10-20); CALCIUM 9.4 mg/dl (8.5-10.1); CREATININE 1.21 mg/dl (0.60-1.40); POTASSIUM 3.6 mmol/L (3.5-5.1)
[2017-05-04 04:50] LABS: THYROID STIMULATING HORMONE 0.778 uIu/ml (0.300-4.500)
--- NOTE | 2017-05-04 05:05 | EMERGENCY ROOM VISIT NOTE ---
History First contact with patient: 03:43 Chief Complaint: UNABLE TO VOID Stated Complaint: UNABLE TO URINATE History of Present Illness The patient is a 71 year old male who presents to the Emergency Room with complaints of unable to urinate with the urge to urinate for the past several hours. Patient states she's been drinking more water. No history of urinary retention in the past. No recent surgery. He is seen Dr. Hampton the past for his prostate. Patient denies chest pain, dyspnea, fever, chills, vomiting, diarrhea, back pain or any other medical complaints. He has moderate Alzheimer' s disease. History is also obtained from the who states he's been drinking a lot more fluids lately over the past 2 months. Labwork few months ago was unremarkable per . The states he's been acting normal besides the increased thirst. No recent illness. He's been eating. He's been ambulating. Review of Systems See HPI for pertinent positives & negatives. A total of 10 systems reviewed and were otherwise negative. Past Medical/Surgical History Medical Problems: (1) Alzheimers disease (2) Asthma (3) Bronchitis (4) Bronchitis (5) HTN (hypertension) (6) Hypercholesteremia (7) PNA (pneumonia) (8) PNA (pneumonia) Surgical Problems: (1) Mitral valve replaced Family History No pertinent family history Social History Smoking Status: Former Smoker Alcohol Use: occasionally Marital Status: Housing Status: lives with significant other Occupation Status: retired Current/Historical Medications Scheduled Allopurinol (Allopurinol), 300 MG PO DAILY Amoxicillin (Amoxil), 1 CAP PO BID Aspirin (Aspirin Ec), 81 MG PO DAILY Atorvastatin (Lipitor), 40 MG PO DAILY Chlorthalidone (Hygroton), 0.5 TAB PO DAILY Cyanocobalamin (Vitamin B-12), 250 MCG PO DAILY Fluticasone Prop/Salmeterol (Advair Diskus 500/50 60 Dose), 1 PUFF INH BID Losartan Potassium (Cozaar), 100 MG PO DAILY Memantine HCl-Donepezil HCl (Namzaric 21-10 mg), 1 CAP PO DAILY Mirtazapine (Remeron), 30 MG PO HS Omeprazole (Prilosec), 20 MG PO DAILY Tamsulosin Hcl (Flomax), 1 CAP PO DAILY Thiamine Hcl (Vitamin B-1), 100 MG PO DAILY Miscellaneous Medications Memantine HCl-Donepezil HCl (Namzaric 21-10 mg) Physical Exam Vital Signs Date Time Temp Pulse Resp B/P (MAP) Pulse Ox O2 Delivery O2 Flow Rate FiO2 05/04/17 04:37 36.6 05/04/17 03:37 64 18 154/70 100 Room Air Physical Exam VITALS: Vitals are noted on the nurse's note and reviewed by myself. Vital signs mildly hypertensive GENERAL: Pleasant male anxious-appearing, in no acute distress, nondiaphoretic, well-developed well-nourished. SKIN: Capillary reflex less than 2 seconds. HEENT: Normocephalic. PERRLA. EOMI. Nares patent. Mucous membranes moist. Neck is supple without nuchal rigidity. HEART: Regular rate and rhythm LUNGS: Clear to auscultation bilaterally without wheezes, rales or rhonchi. No retractions or accessory muscle use. ABDOMEN: Positive bowel sounds x 4. Normal tympanic percussion. Soft, nontender, without masses or organomegaly. Rea sign negative. No guarding or rebound tenderness. No CVA tenderness MUSCULOSKELETAL: No gross musculoskeletal defects. No pedal edema. No calf tenderness. NEURO: Patient was alert and oriented to person but not to place and time. Patient able to follow commands without difficulties. Medical Decision & Procedures Laboratory Results 05/04/17 04:05 Test 05/04/17 03:55 05/04/17 04:05 Urine Color YELLOW Urine Appearance CLEAR (CLEAR) Urine pH 5.0 (4.5-7.5) Urine Specific [place] 1.012 (1.000-1.030) Urine Protein NEG (NEG) Urine Glucose (UA) NEG (NEG) Urine Ketones NEG (NEG) Urine Occult Blood NEG (NEG) Urine Nitrite NEG (NEG) Urine Bilirubin NEG (NEG) Urine Urobilinogen NEG (NEG) Urine Leukocyte Esterase NEG (NEG) Anion Gap 9.0 mmol/L (3-11) Est Creatinine Clear Calc Drug Dose 59.6 ml/min Estimated GFR () 69.4 Estimated GFR (Non- 59.9 BUN/Creatinine Ratio 11.7 (10-20) Calcium Level 9.4 mg/dl (8.5-10.1) Total Bilirubin 0.6 mg/dl (0.2-1) Direct Bilirubin 0.1 mg/dl (0-0.2) Aspartate Amino Transf (AST/SGOT) 15 U/L (15-37) Alanine Aminotransferase (ALT/SGPT) 21 U/L (12-78) Alkaline Phosphatase 41 U/L (45-117) Total Protein 6.4 gm/dl (6.4-8.2) Albumin 4.0 gm/dl (3.4-5.0) Thyroid Stimulating Hormone (TSH) 0.778 uIu/ml (0.300-4.500) Medications Administered Medications (Trade) Dose Ordered Sig/Robbi Route Start Time Stop Time Status Last Admin Dose Admin Lorazepam (Ativan Inj) 0.5 mg NOW STAT IV 05/04/17 04:04 05/04/17 04:05 DC 05/04/17 04:12 0.5 MG ED Course Prior records reviewed and summarized as above. Triage Nursing notes reviewed. Additional history obtained from The patient's history was concerning for polydipsia and difficulty urinating. Differential diagnosis: Etiologies such as electrolyte abnormality, urinary obstruction, urinary retention, prostate problem, thyroid problem, glucose problem, SIADH, hormone problem, as well as others were entertained.. Physical examination: As above ER treatment provided: Patient became quite anxious and was given Ativan On reassessment the patient felt better. Diagnostics interpreted by me: The labs revealed negative urine. Mild hyponatremia, euthyroid This appears to be polydipsia most likely related to anxiety. Ativan seemed to help lessen his polydipsia and anxiety. Patient had minimal urine output. Mcleod catheter was removed as patient has Alzheimer's and did not have urinary retention. I did not want to exacerbated his anxiety. I did not want him to rip out the Mcleod catheter. Family was advised to follow-up with family care in a few days for further evaluation and workup or here in the ER sooner for lethargy, abnormal behavior, altered mental status, fevers, worsening signs or symptoms or as needed. By the evaluation outlined above emergent etiologies such as thyroid problem, anemia, glucose problem, as well as others were deemed relatively unlikely. The pt informed about the findings as listed above. All questions were answered and pleased with the treatment. Return instructions were outlined and the patient was discharged in stable condition. Referral: The patient was referred back to urology and primary care physician for follow- up in 2 to 3 days for a recheck of the current condition. Case reviewed with my attending Medical Decision As above Medication Reconcilliation Current Medication List: was personally reviewed by me Blood Pressure Screening Patient's blood pressure: Elevated blood pressure Blood pressure disposition: Elevated BP felt to be situational Impression Primary Impression: Polydipsia Additional Impressions: Anxiety Hyponatremia Departure Information Dispostion Home / Self-Care Condition GOOD Referrals Pro,Ge Garcia M.D. (PCP) Patient Instructions My [facility] Additional Instructions Rest and drink fluids as tolerated. Avoid excessive fluid intake. Continue current medications. Return to the ER immediately for worsening or persistent agitation, increased thirst, abdominal pain, vomiting, fevers, chest pains, difficulty breathing, worsening of your condition, or as needed. Follow up with your primary physician in 2-3 days for a recheck of your current condition. Problem Qualifiers
[2017-05-04 05:19] VITALS: BP 142/66; PULSE 88; O2SAT 96
--- NOTE | 2017-05-04 07:36 | EMERGENCY ROOM VISIT NOTE ---
ED Visit Note First contact with patient: 03:43 I have personally evaluated and examined this patient. I agree with assessment and plan of Usha Cummins PA-C. Very anxious male with significant Alzheimer's arrives with . He is fixated that he has urinary obstruction. Minimal UOP from [place], normal labs. For me he briefly complained of abdominal pain but this was not repeated nor would exam consistent with need for imaging at this time. He is quite anxious and thus given small dose ativan. Follow up with PCP.
[2017-05-04 07:43] LABS: BASO % 0.6 %; BASO ABS # 0.04 K/uL (0-0.2); COMPLETE YES; EOS % 2.1 %; HEMATOCRIT 39.6 % (42-52); IG% 0.3 %; LYMPH % 31.7 %; LYMPH ABS # 2.24 K/uL (1.2-3.4); MEAN CELL VOLUME 90.2 fL (80-100); MEAN CORPUSCULAR HEMOGLOBIN 30.3 pg (25-34); MEAN CORPUSCULAR HGB CONC 33.6 g/dl (32-36); MEAN PLATELET VOLUME 12.3 fL (7.4-10.4); MONO % 7.9 %; NEUT % 57.4 %; PLATELET COUNT 173 K/uL (130-400); RED BLOOD COUNT 4.39 M/uL (4.7-6.1); WHITE BLOOD COUNT 7.07 K/uL (4.8-10.8)
== END 2017-05-04 05:15 | disposition home or self-care (01) ==
LOC: C.EDB 03:36
DX: R63.1 Polydipsia (principal); E87.1 Hypo-osmolality and hyponatremia; R33.9 Retention of urine, unspecified; G30.9 Alzheimer's disease, unspecified; F41.9 Anxiety disorder, unspecified; I10 Essential (primary) hypertension; J45.909 Unspecified asthma, uncomplicated

== ENCOUNTER → 2017-05-23 | Outpatient (CLI) | payer OTHER ==
[~2017-05-23] MED LIST changes: -AMOX500C3 PO; -MEMA1CAP
== END | disposition home or self-care (01) ==
LOC: C.LAB1850 07:22
PROVIDERS: ATTEND Internal Medicine
DX: Z00.00 Encounter for general adult medical examination without abnormal findings (principal)

== ENCOUNTER → 2017-07-11 | Outpatient (CLI) | payer OTHER ==
[~2017-07-11] MED LIST changes: +THIA100T10 PO; -THIA100T11 PO
[2017-07-11 10:15] LABS: BLOOD UREA NITROGEN 17 mg/dl (7-18); CALCIUM 10.3 mg/dl (8.5-10.1); CARBON DIOXIDE 29 mmol/L (21-32); GLUCOSE 96 mg/dl (70-99); POTASSIUM 4.1 mmol/L (3.5-5.1); SODIUM 141 mmol/L (136-145)
--- NOTE | 2017-07-20 07:51 | CODING QUERY MEDICAL NECESSITY ---
CQSUPPORTING DIAGNOSIS NEEDED A supporting diagnosis is required for the test/procedure performed on this patient in order for us to be reimbursed by the patient's insurance. Please provide a supporting diagnosis for the following test/procedure listed below next to the test name along with your signature. *If there is no additional diagnosis for this patient that would support the following test/procedure please document that below next to the test/procedure. Test(s)/Procedure(s) that require a supporting diagnosis: DOS 07/11/17 VITAMIN D TEST Provider Signature: Date: Thank you Annmarie Barrientos Health Information Management Once completed, please kindly fax back to [phone] For questions please call [phone]
== END | disposition home or self-care (01) ==
LOC: C.LAB1850 07:51
PROVIDERS: ATTEND Internal Medicine
DX: R73.9 Hyperglycemia, unspecified (principal); E87.5 Hyperkalemia

== ENCOUNTER → 2017-07-24 | Outpatient (CLI) | payer OTHER ==
[~2017-07-24] MED LIST changes: +GADAVIST IV PRN; -THIA100T10 PO; +THIA100T11 PO
--- NOTE | 2017-07-24 14:14 | DIAGNOSTIC IMAGING REPORT ---
BRAIN COMBO HISTORY: 71 years-old Male R41.3 Memory [id number] Cogwheel rigidity of the right upper extremity. History of Alzheimer's disease. COMPARISON: MRI of the brain 03/18/2016, CT head 12/21/2016 TECHNIQUE: Multiplanar multisequence MRI the brain was obtained both with and without the use of 7.5 mL Gadavist. FINDINGS: There is no restricted diffusion to suggest acute infarction. The midline structures including the corpus callosum, brainstem, optic chiasm, infundibulum, pituitary and pineal glands are unremarkable in the sagittal T1 series. No cerebellar tonsillar herniation. Degenerative changes are noted within the imaged cervical spine. No acute intracranial hemorrhage, midline shift, abnormal extra-axial collection or hydrocephalus. Several of the sequences are motion degraded. Mild to moderate cerebral atrophy is noted. Multifocal areas of T2/FLAIR prolongation are again seen within the subcortical, deep and periventricular white matter compatible with chronic microvascular ischemic changes. More confluently areas of abnormal signal are seen within the left parietal lobe extending to the cortex with mild encephalomalacia suggesting gliosis with remote infarction, unchanged. There is no abnormal intra-axial or extra-axial enhancement identified. The major flow voids at the level of the skull base are patent. Mastoid air cells are clear. Mild mucosal thickening of the maxillary and ethmoid sinuses. Orbits are symmetric. The calvarium, scalp and soft tissues are within normal limits. IMPRESSION: 1. No acute intracranial abnormality. 2. No acute infarction or abnormal enhancement. 3. Mild maxillary and ethmoid sinus disease. 4. Chronic changes as above. The above report was generated using voice recognition software. It may contain grammatical, syntax or spelling errors. Electronically signed by: Rey Enciso M.D. 07/24/2017 2:12 PM Dictated Date/Time: 07/24/2017 2:05 PM
== END | disposition home or self-care (01) ==
LOC: C.MRIBC 12:47
PROVIDERS: ATTEND Psychiatry & Neurology Neurology
DX: R29.898 Other symptoms and signs involving the musculoskeletal system (principal); R41.3 Other amnesia; J32.0 Chronic maxillary sinusitis; J32.2 Chronic ethmoidal sinusitis

== ENCOUNTER → 2017-10-10 | Outpatient (CLI) | payer OTHER ==
[~2017-10-10] MED LIST changes: -GADAVIST IV PRN
[2017-10-10 09:48] LABS: ALT/SGPT 19 U/L (12-78); AST/SGOT 13 U/L (15-37); BLOOD UREA NITROGEN 17 mg/dl (7-18); CARBON DIOXIDE 28 mmol/L (21-32); CREATININE 1.22 mg/dl (0.60-1.40); GLUCOSE 91 mg/dl (70-99); POTASSIUM 3.7 mmol/L (3.5-5.1); SODIUM 141 mmol/L (136-145)
[2017-10-10 09:54] LABS: CHOLESTEROL 142 mg/dl (0-200); LDL CHOLESTEROL CALCULATED 65 mg/dl; URIC ACID 2.7 mg/dl (2.6-7.2)
[2017-10-10 09:55] LABS: HEMOGLOBIN A1C 5.9 % (4.5-5.6)
== END | disposition home or self-care (01) ==
LOC: C.LAB1850 07:20
PROVIDERS: ATTEND Internal Medicine
DX: R73.9 Hyperglycemia, unspecified (principal); M10.9 Gout, unspecified; E78.00 Pure hypercholesterolemia, unspecified; E55.9 Vitamin D deficiency, unspecified